=== PATIENT | male | born 1945 | race Caucasian/White ===

== ENCOUNTER 2021-09-19 10:30 | Day surgery (SDC) | payer MEDICARE ==
[2021-09-19] VITALS (9 sets, daily range): BP systolic 118–166; BP diastolic 58–87
[~2021-09-19] VITALS: Ht 188 cm; Wt 100.2 kg
[2021-09-19] MEDS ORDERED: normal saline 1,000 ML IV SCH (11:10)
[2021-09-19] MEDS ORDERED: diphenhydrAMINE 25mg capsule PO PRN (11:10)
[2021-09-19] MEDS ORDERED: CA C1TAB89 PO (11:14)
[2021-09-19] MEDS ORDERED: CLON-528 PO (11:14)
[2021-09-19] MEDS ORDERED: PARO10TA85 PO (11:14)
[2021-09-19 11:24] LABS: BASOPHILS % (AUTO) 0.9 % (0-1); EOSINOPHILS # (AUTO) 0.1 X10'3 (0-0.9); EOSINOPHILS % (AUTO) 1.8 % (0-6); HEMATOCRIT 46.3 % (42.0-52.0); HEMOGLOBIN 16.1 g/dl (14.0-17.9); LYMPHOCYTES # (AUTO) 1.1 X10'3 (1.1-4.8); MEAN CORPUSCULAR HEMOGLOBIN 32.3 PG (27.0-31.0); MEAN CORPUSCULAR HGB CONC 34.7 g/dL (33.0-36.5); MEAN CORPUSCULAR VOLUME 92.9 FL (78-98); MEAN PLATELET VOLUME 8.7 FL (7.4-10.4); MONOCYTES # (AUTO) 0.4 X10'3 (0-0.9); MONOCYTES % (AUTO) 8.3 % (2-12); NEUTROPHILS # (AUTO) 3.7 X10'3 (1.8-7.7); PLATELET COUNT 108 X10'3 (140-440); RED BLOOD COUNT 4.98 X10'6 (4.70-6.10); RED CELL DISTRIBUTION WIDTH 13.2 % (11.5-14.5); WHITE BLOOD COUNT 5.3 X10'3 (4.5-11.0)
[2021-09-19 11:36] LABS: ALBUMIN 3.7 G/DL (3.4-5.0); ANION GAP 12 (8-16); BLOOD UREA NITROGEN 21 MG/DL (7-18); BUN/CREATININE RATIO 18.4 (5.4-32.0); CALCIUM 8.4 MG/DL (8.5-10.1); CHLORIDE 106 MMOL/L (99-107); CREATININE 1.14 MG/DL (0.60-1.10); GLUCOSE 114 MG/DL (70-104); POTASSIUM 4.1 MMOL/L (3.5-5.1); SODIUM 142 MMOL/L (135-145); TOTAL CARBON DIOXIDE 23.8 MMOL/L (24-32); eGFR 63 ML/MIN
[2021-09-19] MEDS ORDERED: midazolam 1 mg/ML 2ml injection ONE ×2 (12:30→13:10)
[2021-09-19] MEDS ORDERED: fentaNYL/PF 50MCG/1 ML 2ML syringe ONE (12:31)
[2021-09-19] MEDS ORDERED: LIDOcaine 1% (10mg/ml)w/preservative injection 20ml MDV ONE (12:31)
[2021-09-19] MEDS ORDERED: iohexol 350 MG/ML 50ML vial IV ONE (12:31)
[2021-09-19] MEDS ORDERED: heparin 1,000unit/ml 10ml vial 10 ML ONE (12:31)
[2021-09-19] MEDS ORDERED: iohexol 350MG/ML 100ml bottle IV ONE (12:31)
[2021-09-19] MEDS ORDERED: verapamil 2.5 mg/ml inj IV ONE (13:10)
[2021-09-19] MEDS ORDERED: nitroGLYCERIN-Tridil 50MG/D5W 250 ML IV ONE (13:10)
[2021-09-19] MEDS ORDERED: proCHLORperazine 10 MG/2 ml inj ONE (13:12)
[2021-09-19] MEDS ORDERED: HYDROcodone/acetaminophen 10/325mg tab PO PRN (14:25)
[2021-09-19] MEDS ORDERED: ondansetron/PF 4mg/2ml inj IV PRN (14:25)
[2021-09-19] MEDS ORDERED: HYDROcodone/acetaminophen 5mg/325mg tablet PO PRN (14:25)
[2021-09-19] MEDS ORDERED: proCHLORperazine 10 MG/2 ml inj IV PRN (14:25)
== END 2021-09-19 17:15 | disposition home or self-care (01) ==
LOC: SSTAY O 10:30
PROVIDERS: ATTEND Internal Medicine Cardiovascular Disease
DX: R06.09 Other forms of dyspnea (principal); R53.83 Other fatigue; I42.0 Dilated cardiomyopathy; I48.0 Paroxysmal atrial fibrillation; I47.2 Ventricular tachycardia; F41.9 Anxiety disorder, unspecified; F12.90 Cannabis use, unspecified, uncomplicated; Z72.89 Other problems related to lifestyle; Z79.01 Long term (current) use of anticoagulants; Z98.890 Other specified postprocedural states; Z79.899 Other long term (current) drug therapy; Z80.42 Family history of malignant neoplasm of prostate; Z81.8 Family history of other mental and behavioral disorders
CPT/HCPCS: 36415; 80048; 83735; 85025; 85610; 93005; 93458; 99152; 99153; C1769; C1894; J0780; J1644; J2001; J2250; J3010; J7030; Q0163; Q9967; A4620; A6258; J3490